=== PATIENT | female | born 1945 | race Two or more races ===

== ENCOUNTER 2024-07-03 18:33 | Inpatient (IN) | payer MEDICARE, OTHER ==
[~2024-07-03] VITALS: Ht 165.1 cm; Wt 106.2 kg
[2024-07-03 21:42] LABS: Basophils # (auto) 0 10 ^3/uL (0-0.2); Basophils % (auto) 0.3 % (0.0-2.0); Eosinophils # (auto) 0 10 ^3/uL (0-0.8); Eosinophils % (auto) 0.3 % (0.0-7.0); Hemoglobin 13.3 g/dL (12.2-16.2); Lymphocytes # (auto) 0.8 10 ^3/uL (0.4-5.4); Lymphocytes % (auto) 12.3 % (10.0-50.0); Mean Corpuscular Hgb Conc. 34.1 g/dL (32.0-36.0); Mean Corpuscular Volume 96.6 fL (80.0-100.0); Monocytes # (auto) 0.5 10 ^3/uL (0-1.3); Monocytes % (auto) 7.8 % (0.0-12.0); Neutrophils # (auto) 5.3 10 ^3/uL (1.6-8.6); Neutrophils % (auto) 79.3 % (37.0-80.0); Platelet Count (auto) 171 10^3/uL (140-450); Red Blood Cells 4.03 10^6/uL (4.0-5.20); Red Cell Distribution Width 14.6 % (11.8-14.3); White Blood Cell 6.7 10^3/uL (4.4-10.8)
[2024-07-03 22:01] LABS: Alanine Aminotransferase 21 U/L (7-40); Albumin 3.7 g/dL (3.2-4.8); Alkaline Phosphatase 118 U/L (46-116); Anion Gap 8 (5-15); Aspartate Aminotransferase 30 U/L (13-40); BUN/Creatinine Ratio 15.8 (10.0-20.0); Bilirubin, Total 0.5 mg/dL (0.2-1.0); Blood Urea Nitrogen 22 mg/dL (9-23); Calcium 9.6 mg/dL (8.7-10.4); Carbon Dioxide 22 mmol/L (20-31); Chloride 110 mmol/L (98-107); Glucose 142 mg/dL (74-106); Potassium 5.3 mmol/L (3.5-5.1); Sodium 140 mmol/L (136-145); Total Protein 5.9 g/dL (5.7-8.2)
[2024-07-03] MEDS: ASPirin 81 mg TAB PO ONE (23:45)
[2024-07-04] VITALS (7 sets, daily range): BP systolic 110–125; BP diastolic 31–46; PULSE 55–73; RESP 16–20; TEMP 98–98.9; O2SAT 94–98
[2024-07-04] MEDS: NITROGLYCERIN 2% OINT 1GM PKG TD ONE (00:44)
[2024-07-04] MEDS: SODIUM CHLORIDE 0.9% 1,000 ML IV ONE (05:25)
[2024-07-04] MEDS ORDERED: HEPARIN DRIP/D5W 100UNITS/ML 250 ML IV SCH ×2 (06:15→07:00)
[2024-07-04] MEDS ORDERED: LORazepam 2MG/ML-1ML VIAL IV PRN ×3 (06:15→10:00)
[2024-07-04] MEDS ORDERED: HEPARIN SODIUM (PORCINE) 5000 UNITS/ML 1ML VIAL IV ONE (07:00)
[2024-07-04] MEDS: InsuLIN REG 1unit/0.01ml Soln (100units/ml) IV ONE (07:07)
[2024-07-04] MEDS: DEXTROSE (50%) 50ML SYRG IV ONE (07:13)
[2024-07-04 07:22] LABS: Basophils # (auto) 0 10 ^3/uL (0-0.2); Basophils % (auto) 0.5 % (0.0-2.0); Eosinophils # (auto) 0.1 10 ^3/uL (0-0.8); Eosinophils % (auto) 1.1 % (0.0-7.0); Hematocrit 38.1 % (36.0-46.0); Lymphocytes # (auto) 1.3 10 ^3/uL (0.4-5.4); Lymphocytes % (auto) 18.5 % (10.0-50.0); Mean Corpuscular Hemoglobin 32.7 pg (28.0-32.0); Mean Corpuscular Hgb Conc. 34.1 g/dL (32.0-36.0); Mean Corpuscular Volume 95.8 fL (80.0-100.0); Monocytes # (auto) 0.7 10 ^3/uL (0-1.3); Monocytes % (auto) 10.1 % (0.0-12.0); Neutrophils # (auto) 4.9 10 ^3/uL (1.6-8.6); Neutrophils % (auto) 69.8 % (37.0-80.0); Nucleated Red Blood Cells % 0.1 %; Platelet Count (auto) 165 10^3/uL (140-450); Red Blood Cells 3.98 10^6/uL (4.0-5.20); Red Cell Distribution Width 14.8 % (11.8-14.3)
[2024-07-04 07:40] LABS: Alanine Aminotransferase 17 U/L (7-40); Albumin 3.6 g/dL (3.2-4.8); Alkaline Phosphatase 109 U/L (46-116); Anion Gap 7 (5-15); Aspartate Aminotransferase 26 U/L (13-40); BUN/Creatinine Ratio 14.3 (10.0-20.0); Blood Urea Nitrogen 18 mg/dL (9-23); Calcium 9.6 mg/dL (8.7-10.4); Carbon Dioxide 22 mmol/L (20-31); Chloride 111 mmol/L (98-107); Glucose 107 mg/dL (74-106); Magnesium 1.8 mg/dL (1.6-2.6); Potassium 4.7 mmol/L (3.5-5.1); Sodium 140 mmol/L (136-145)
[2024-07-04 07:41] LABS: Bilirubin, Total 0.7 mg/dL (0.2-1.0); Total Protein 5.9 g/dL (5.7-8.2)
[2024-07-04 07:53] LABS: INR 1.08 (0.9-1.15); Partial Thromboplastin Time 25.6 SEC (24.5-34.5); Prothrombin Time 11.4 sec (9.3-11.8)
[2024-07-04] MEDS: HEPARIN SODIUM (PORCINE) 5000 UNITS/ML 1ML VIAL IV ONE (09:06)
[2024-07-04] MEDS: HEPARIN DRIP/D5W 100UNITS/ML 250 ML IV SCH (09:07)
[2024-07-04 10:58] LABS: Free T3 3.17 pg/mL (2.3-4.2)
[2024-07-04 10:59] LABS: Free T4 (Free Thyroxine) 1.69 ng/dL (0.89-1.76)
[2024-07-04] MEDS: ASPirin 81 mg TAB PO SCH (11:08)
[2024-07-04] MEDS: IOHEXOL 350 MG/ML 100ML IJ ONE (12:47)
[2024-07-04 16:07] LABS: INR 1.11 (0.9-1.15); Prothrombin Time 11.7 sec (9.3-11.8)
[2024-07-04 16:18] LABS: Partial Thromboplastin Time 75.2 SEC (24.5-34.5)
[2024-07-04 21:49] LABS: INR 1.13 (0.9-1.15); Partial Thromboplastin Time 58.3 SEC (24.5-34.5); Prothrombin Time 11.9 sec (9.3-11.8)
[2024-07-04] MEDS: ACETAMINOPHEN 325 MG TAB PO PRN (22:01)
[2024-07-05] VITALS (9 sets, daily range): BP systolic 104–120; BP diastolic 31–87; PULSE 53–71; RESP 16–20; TEMP 97.2–98.1; O2SAT 93–97
[2024-07-05 03:52] LABS: Basophils # (auto) 0.1 10 ^3/uL (0-0.2); Basophils % (auto) 0.9 % (0.0-2.0); Eosinophils # (auto) 0.2 10 ^3/uL (0-0.8); Eosinophils % (auto) 2.3 % (0.0-7.0); Hematocrit 36.3 % (36.0-46.0); Hemoglobin 12.4 g/dL (12.2-16.2); Lymphocytes # (auto) 1.5 10 ^3/uL (0.4-5.4); Lymphocytes % (auto) 19.6 % (10.0-50.0); Mean Corpuscular Hemoglobin 33.3 pg (28.0-32.0); Mean Corpuscular Hgb Conc. 34.1 g/dL (32.0-36.0); Mean Corpuscular Volume 97.9 fL (80.0-100.0); Monocytes # (auto) 0.7 10 ^3/uL (0-1.3); Monocytes % (auto) 9.6 % (0.0-12.0); Neutrophils # (auto) 5.1 10 ^3/uL (1.6-8.6); Neutrophils % (auto) 67.6 % (37.0-80.0); Nucleated Red Blood Cells % 0.1 %; Platelet Count (auto) 138 10^3/uL (140-450); Red Blood Cells 3.71 10^6/uL (4.0-5.20); Red Cell Distribution Width 14.6 % (11.8-14.3); White Blood Cell 7.5 10^3/uL (4.4-10.8)
[2024-07-05 04:03] LABS: Chloride 113 mmol/L (98-107); Potassium 4.4 mmol/L (3.5-5.1); Sodium 141 mmol/L (136-145)
[2024-07-05 04:04] LABS: Anion Gap 8 (5-15); Calcium 9.1 mg/dL (8.7-10.4); Carbon Dioxide 20 mmol/L (20-31)
[2024-07-05 04:09] LABS: BUN/Creatinine Ratio 13.4 (10.0-20.0); Blood Urea Nitrogen 15 mg/dL (9-23); Glucose 90 mg/dL (74-106)
[2024-07-05 04:17] LABS: INR 1.13 (0.9-1.15); Prothrombin Time 11.9 sec (9.3-11.8)
[2024-07-05 04:21] LABS: Partial Thromboplastin Time 82.8 SEC (24.5-34.5)
[2024-07-05 04:31] LABS: Urine WBC None Seen /hpf (0 - 5)
[2024-07-05 04:42] LABS: Urine Bacteria FEW /hpf (None Seen); Urine Blood 2+ /uL (Negative); Urine Clarity Clear (Clear); Urine Color Yellow (Yellow); Urine Mucus FEW (None Seen); Urine Protein, UAD TRACE (Negative); Urine Specific Gravity 1.049 (1.001-1.035); Urine Urobilinogen Normal (Negative); Urine pH 5.5 (5.0-9.0)
[2024-07-05 04:52] LABS: Amphetamine Screen, Urine Neg (NEGATIVE); Barbiturate Scree,Urine Neg (NEGATIVE); Benzodiazephine Screen, Urine Neg (NEGATIVE); Cannabinoid Screen, Urine Neg (NEGATIVE); Cocaine Screen, Urine Neg (NEGATIVE); Opiate Scree,Urine Neg (NEGATIVE); Phencyclidine Screen, Urine Neg (NEGATIVE)
[2024-07-05] MEDS ORDERED: HEPARIN DRIP/D5W 100UNITS/ML 250 ML IV SCH (05:45)
[2024-07-05] MEDS: CARVEDILOL 3.125 MG TAB PO SCH (09:39)
[2024-07-05] MEDS: ENALAPRIL MALEATE 2.5 MG TAB PO SCH (09:43)
[2024-07-05] MEDS: PANTOPRAZOLE 40 MG TAB PO ONE (09:44)
[2024-07-05 12:12] LABS: INR 1.13 (0.9-1.15); Partial Thromboplastin Time 53.9 SEC (24.5-34.5); Prothrombin Time 11.9 sec (9.3-11.8)
[2024-07-05] MEDS ORDERED: LISI20TA56 PO (16:25)
[2024-07-05] MEDS ORDERED: WARF4TAB70 PO (16:25)
[2024-07-05] MEDS ORDERED: PANT40T PO (16:25)
[2024-07-05] MEDS ORDERED: ALIR75IN2 SC (16:25)
[2024-07-05 17:45] LABS: INR 1.13 (0.9-1.15); Partial Thromboplastin Time 54.7 SEC (24.5-34.5); Prothrombin Time 11.9 sec (9.3-11.8)
[2024-07-05] MEDS: WARFARIN SODIUM 2 MG TAB PO ONE (18:47)
[2024-07-05] MEDS ORDERED: ATORVASTATIN 20 MG TAB PO SCH (22:00)
[2024-07-05] MEDS: ATORVASTATIN 20 MG TAB PO ONE (22:00)
[2024-07-05 23:37] LABS: INR 1.11 (0.9-1.15); Partial Thromboplastin Time 49.1 SEC (24.5-34.5); Prothrombin Time 11.7 sec (9.3-11.8)
[2024-07-05] MEDS: ATORVASTATIN 20 MG TAB PO SCH (23:42)
[2024-07-06] VITALS (8 sets, daily range): BP systolic 102–123; BP diastolic 39–52; PULSE 52–55; RESP 14–20; TEMP 97.6–98.5; O2SAT 92–98
[2024-07-06] MEDS: HEPARIN DRIP/D5W 100UNITS/ML 250 ML IV SCH ×2 (01:37→13:45)
[2024-07-06] MEDS: PANTOPRAZOLE 40 MG TAB PO SCH (05:26)
[2024-07-06 07:03] LABS: INR 1.14 (0.9-1.15)
[2024-07-06 07:07] LABS: Partial Thromboplastin Time 73.6 SEC (24.5-34.5)
[2024-07-06 07:24] LABS: Anion Gap 5 (5-15); Carbon Dioxide 24 mmol/L (20-31); Chloride 110 mmol/L (98-107); Potassium 4.3 mmol/L (3.5-5.1); Sodium 139 mmol/L (136-145)
[2024-07-06 07:29] LABS: Glucose 105 mg/dL (74-106)
[2024-07-06 07:30] LABS: BUN/Creatinine Ratio 12.1 (10.0-20.0); Blood Urea Nitrogen 15 mg/dL (9-23)
[2024-07-06 08:59] LABS: Basophils # (auto) 0 10 ^3/uL (0-0.2); Basophils % (auto) 0.5 % (0.0-2.0); Eosinophils # (auto) 0.2 10 ^3/uL (0-0.8); Eosinophils % (auto) 3.8 % (0.0-7.0); Hematocrit 36.1 % (36.0-46.0); Hemoglobin 12.2 g/dL (12.2-16.2); Lymphocytes # (auto) 1.1 10 ^3/uL (0.4-5.4); Lymphocytes % (auto) 19.2 % (10.0-50.0); Mean Corpuscular Hemoglobin 32.8 pg (28.0-32.0); Mean Corpuscular Hgb Conc. 33.8 g/dL (32.0-36.0); Monocytes # (auto) 0.6 10 ^3/uL (0-1.3); Monocytes % (auto) 10.2 % (0.0-12.0); Neutrophils # (auto) 3.8 10 ^3/uL (1.6-8.6); Neutrophils % (auto) 66.3 % (37.0-80.0); Nucleated Red Blood Cells % 0.1 %; Platelet Count (auto) 143 10^3/uL (140-450); Red Blood Cells 3.72 10^6/uL (4.0-5.20); Red Cell Distribution Width 14.5 % (11.8-14.3); White Blood Cell 5.7 10^3/uL (4.4-10.8)
[2024-07-06 12:38] LABS: INR 1.18 (0.9-1.15); Prothrombin Time 12.4 sec (9.3-11.8)
[2024-07-06 12:47] LABS: Partial Thromboplastin Time 81.5 SEC (24.5-34.5)
[2024-07-06] MEDS ORDERED: HEPARIN DRIP/D5W 100UNITS/ML 250 ML IV SCH (13:30)
[2024-07-06] MEDS: WARFARIN SODIUM 2 MG TAB PO ONE (18:11)
[2024-07-06] MEDS: SODIUM CHLORIDE 0.9% 1,000 ML IV ONE (18:13)
[2024-07-06 19:42] LABS: Triglycerides 101 mg/dL (< 150)
[2024-07-06 19:43] LABS: LDL Cholesterol 77 mg/dL (< 100)
[2024-07-06 19:44] LABS: Cholesterol 130 mg/dL (< 200); HDL Cholesterol 37 mg/dL (40-59)
[2024-07-06 20:28] LABS: INR 1.18 (0.9-1.15); Partial Thromboplastin Time 61.9 SEC (24.5-34.5); Prothrombin Time 12.4 sec (9.3-11.8)
[2024-07-07] VITALS (8 sets, daily range): BP systolic 101–137; BP diastolic 34–81; PULSE 52–59; RESP 16–20; TEMP 97.9–98.7; O2SAT 92–98
[2024-07-07 02:28] LABS: INR 1.25 (0.9-1.15)
[2024-07-07 06:47] LABS: Chloride 111 mmol/L (98-107); Potassium 4.6 mmol/L (3.5-5.1); Sodium 138 mmol/L (136-145)
[2024-07-07 06:48] LABS: Anion Gap 6 (5-15); Calcium 8.9 mg/dL (8.7-10.4); Carbon Dioxide 21 mmol/L (20-31)
[2024-07-07 06:53] LABS: BUN/Creatinine Ratio 7.8 (10.0-20.0); Blood Urea Nitrogen 9 mg/dL (9-23); Glucose 99 mg/dL (74-106)
[2024-07-07 07:30] LABS: Basophils # (auto) 0 10 ^3/uL (0-0.2); Basophils % (auto) 0.9 % (0.0-2.0); Eosinophils # (auto) 0.2 10 ^3/uL (0-0.8); Eosinophils % (auto) 4.5 % (0.0-7.0); Hematocrit 35.2 % (36.0-46.0); Lymphocytes # (auto) 1.1 10 ^3/uL (0.4-5.4); Lymphocytes % (auto) 21.4 % (10.0-50.0); Mean Corpuscular Hgb Conc. 34.1 g/dL (32.0-36.0); Mean Corpuscular Volume 99.8 fL (80.0-100.0); Monocytes # (auto) 0.5 10 ^3/uL (0-1.3); Monocytes % (auto) 10.7 % (0.0-12.0); Neutrophils # (auto) 3.2 10 ^3/uL (1.6-8.6); Neutrophils % (auto) 62.5 % (37.0-80.0); Nucleated Red Blood Cells % 0.9 %; Platelet Count (auto) 185 10^3/uL (140-450); Red Blood Cells 3.53 10^6/uL (4.0-5.20)
[2024-07-07 07:53] LABS: INR 1.24 (0.9-1.15); Partial Thromboplastin Time 51.4 SEC (24.5-34.5); Prothrombin Time 12.9 sec (9.3-11.8)
[2024-07-07 14:06] LABS: INR 1.32 (0.9-1.15); Partial Thromboplastin Time 59.2 SEC (24.5-34.5); Prothrombin Time 13.7 sec (9.3-11.8)
[2024-07-07] MEDS: WARFARIN SODIUM 2.5 MG TAB PO ONE (18:07)
[2024-07-08] VITALS (8 sets, daily range): BP systolic 99–126; BP diastolic 39–50; PULSE 54–60; RESP 15–20; TEMP 97.6–99.2; O2SAT 93–97
[2024-07-08 07:00] LABS: Basophils # (auto) 0 10 ^3/uL (0-0.2); Basophils % (auto) 1.1 % (0.0-2.0); Eosinophils # (auto) 0.2 10 ^3/uL (0-0.8); Eosinophils % (auto) 4.8 % (0.0-7.0); Hemoglobin 12.2 g/dL (12.2-16.2); Lymphocytes # (auto) 1.1 10 ^3/uL (0.4-5.4); Lymphocytes % (auto) 29.3 % (10.0-50.0); Mean Corpuscular Hgb Conc. 33.9 g/dL (32.0-36.0); Mean Corpuscular Volume 97.3 fL (80.0-100.0); Monocytes # (auto) 0.5 10 ^3/uL (0-1.3); Monocytes % (auto) 13.2 % (0.0-12.0); Neutrophils % (auto) 51.6 % (37.0-80.0); Platelet Count (auto) 154 10^3/uL (140-450); Red Cell Distribution Width 14.6 % (11.8-14.3); White Blood Cell 3.9 10^3/uL (4.4-10.8)
[2024-07-08 07:07] LABS: Calcium 9.1 mg/dL (8.7-10.4); Chloride 111 mmol/L (98-107); Potassium 4.3 mmol/L (3.5-5.1); Sodium 140 mmol/L (136-145)
[2024-07-08 07:08] LABS: Anion Gap 5 (5-15); Carbon Dioxide 24 mmol/L (20-31)
[2024-07-08 07:13] LABS: BUN/Creatinine Ratio 7.9 (10.0-20.0); Blood Urea Nitrogen 9 mg/dL (9-23); Glucose 93 mg/dL (74-106)
[2024-07-08 07:22] LABS: INR 1.61 (0.9-1.15); Partial Thromboplastin Time 60.9 SEC (24.5-34.5); Prothrombin Time 16.5 sec (9.3-11.8)
[2024-07-08] MEDS: WARFARIN SODIUM 2.5 MG TAB PO ONE (18:36)
[2024-07-09 01:00] VITALS: BP 127/40; PULSE 53; RESP 18; TEMP 98.9; O2SAT 95
[2024-07-09 05:00] VITALS: BP 85/22; PULSE 54; RESP 18; TEMP 98.6; O2SAT 94
[2024-07-09 06:32] VITALS: BP 130/47; PULSE 54
[2024-07-09 07:28] LABS: Chloride 110 mmol/L (98-107); Potassium 4.1 mmol/L (3.5-5.1); Sodium 141 mmol/L (136-145)
[2024-07-09 07:29] LABS: Anion Gap 8 (5-15); Carbon Dioxide 23 mmol/L (20-31)
[2024-07-09 07:30] VITALS: PULSE 55
[2024-07-09 07:30] LABS: Calcium 9.3 mg/dL (8.7-10.4)
[2024-07-09 07:34] LABS: Glucose 85 mg/dL (74-106)
[2024-07-09 07:35] LABS: BUN/Creatinine Ratio 8.3 (10.0-20.0); Blood Urea Nitrogen 10 mg/dL (9-23)
[2024-07-09 07:38] LABS: INR 2.04 (0.9-1.15); Prothrombin Time 20.5 sec (9.3-11.8)
[2024-07-09 07:41] LABS: Partial Thromboplastin Time 70.9 SEC (24.5-34.5)
[2024-07-09 07:50] LABS: Basophils # (auto) 0 10 ^3/uL (0-0.2); Eosinophils # (auto) 0.2 10 ^3/uL (0-0.8); Eosinophils % (auto) 4.3 % (0.0-7.0); Hematocrit 36.1 % (36.0-46.0); Hemoglobin 12.5 g/dL (12.2-16.2); Lymphocytes # (auto) 1.5 10 ^3/uL (0.4-5.4); Lymphocytes % (auto) 34.6 % (10.0-50.0); Mean Corpuscular Hemoglobin 33.7 pg (28.0-32.0); Mean Corpuscular Hgb Conc. 34.7 g/dL (32.0-36.0); Monocytes # (auto) 0.5 10 ^3/uL (0-1.3); Monocytes % (auto) 12.6 % (0.0-12.0); Neutrophils # (auto) 2.1 10 ^3/uL (1.6-8.6); Neutrophils % (auto) 47.5 % (37.0-80.0); Nucleated Red Blood Cells % 0.2 %; Platelet Count (auto) 170 10^3/uL (140-450); Red Blood Cells 3.72 10^6/uL (4.0-5.20); Red Cell Distribution Width 14.8 % (11.8-14.3); White Blood Cell 4.4 10^3/uL (4.4-10.8)
[2024-07-09 08:30] VITALS: PULSE 55; RESP 16; O2SAT 96
[2024-07-09 10:53] VITALS: BP 120/41; PULSE 55; RESP 16; TEMP 97.8; O2SAT 96
[2024-07-09] MEDS ORDERED: WARFARIN SODIUM 1 MG TAB PO ONE (17:00)
== END 2024-07-09 12:10 | disposition home or self-care (01) | DRG 64 ==
LOC: EDBD 18:33 → ER 18:42 → TELE 07-04 05:36 → ER 07-04 05:36 → TELE-EAST 07-04 16:46
PROVIDERS: ADMIT Internal Medicine; ATTEND Surgery
PROC: 4B02XSZ Measurement of Cardiac Pacemaker, External Approach (ICD-10-PCS; principal; 2024-07-04)
DX: I63.9 Cerebral infarction, unspecified (principal); I21.A1 Myocardial infarction type 2; I26.99 Other pulmonary embolism without acute cor pulmonale; N17.0 Acute kidney failure with tubular necrosis; D68.69 Other thrombophilia; I13.0 Hypertensive heart and chronic kidney disease with heart failure and stage 1 through stage 4 chronic kidney disease, or unspecified chronic kidney disease; I50.32 Chronic diastolic (congestive) heart failure; E87.5 Hyperkalemia; I48.91 Unspecified atrial fibrillation; E03.9 Hypothyroidism, unspecified; E87.8 Other disorders of electrolyte and fluid balance, not elsewhere classified; R91.1 Solitary pulmonary nodule; E66.01 Morbid (severe) obesity due to excess calories; I73.9 Peripheral vascular disease, unspecified; E78.5 Hyperlipidemia, unspecified; I27.20 Pulmonary hypertension, unspecified; M54.50 Low back pain, unspecified; I25.5 Ischemic cardiomyopathy; I34.81 Nonrheumatic mitral (valve) annulus calcification; G51.0 Bell's palsy; F10.10 Alcohol abuse, uncomplicated; Y90.9 Presence of alcohol in blood, level not specified; I25.10 Atherosclerotic heart disease of native coronary artery without angina pectoris; N18.9 Chronic kidney disease, unspecified; G89.29 Other chronic pain; R56.9 Unspecified convulsions; Z79.01 Long term (current) use of anticoagulants; Z87.891 Personal history of nicotine dependence; Z68.34 Body mass index [BMI] 34.0-34.9, adult; Z90.49 Acquired absence of other specified parts of digestive tract; Z95.0 Presence of cardiac pacemaker; Z82.49 Family history of ischemic heart disease and other diseases of the circulatory system
CPT/HCPCS: 36415; 70551; 71045; 71275; 80048; 80053; 80061; 80307; 81001; 82306; 82550; 82607; 82962; 83735; 84439; 84443; 84481; 84484; 85025; 85379; 85610; 85730; 87081; 93005; 93306; 93886; 93970; 95819; 97110; 97116; 97163; 97530; 99291; G0378; J1815